=== PATIENT | male | born 1950 | race Caucasian/White ===

== ENCOUNTER 2019-03-02 07:24 | Day surgery (SDC) | payer BC ==
[2019-03-01 13:24] VITALS: BMI 26.1
[~2019-03-02 07:24] MED LIST: EPINEPHrine 0.3 MG in Ophthalmic Irrigation Solution 500 ML IVP SCH
[2019-03-02] MEDS ORDERED: Phenylephrine 2.5% Ophth Soln 5 ML BOT ONE (07:52)
[2019-03-02] MEDS ORDERED: Cyclopentolate 1% Opth Drop 2 ML BOT ONE (07:53)
[2019-03-02] MEDS ORDERED: Midazolam HCl 2 mg/2 ml Vial ONE (09:26)
[2019-03-02] MEDS ORDERED: PROPOFOL 20 ML ONE (09:26)
[2019-03-02] MEDS ORDERED: Fentanyl 100 MCG/2 ML VIAL ONE (09:26)
[2019-03-02] MEDS ORDERED: Bupivacaine 0.75% 10 ML AMP ONE (14:59)
[2019-03-02] MEDS ORDERED: Lidocaine 1% PF 5 ML VIAL ONE (14:59)
[2019-03-02] MEDS ORDERED: Maxitrol 0.1% Opth Oint 3.5 GM TUBE ONE (14:59)
[2019-03-02] MEDS ORDERED: PROPOFOL 200 MG/20 ML VIAL ONE (14:59)
[2019-03-02] MEDS ORDERED: Lidocaine 4% PF 5 ML AMP ONE (14:59)
[2019-03-02] MEDS ORDERED: Triamcinolone 40 MG/ML VIAL ONE (14:59)
[2019-03-02] MEDS ORDERED: Indocyanine Green 25 MG/10 ML VIAL ONE (14:59)
[2019-03-02] MEDS ORDERED: CEFAZOLIN 1 GM VIAL ONE (14:59)
--- NOTE | 2019-03-02 17:19 | OP ---
DATE OF PROCEDURE: 03/02/2019 PREOPERATIVE DIAGNOSIS: Epiretinal membrane, left eye. POSTOPERATIVE DIAGNOSIS: Epiretinal membrane, left eye. PROCEDURES PERFORMED: Pars plana vitrectomy and epiretinal membrane peel, left eye. ANESTHESIA: Local with monitored anesthesia care. PROCEDURE IN DETAIL: The patient was identified in the preoperative holding area. Appropriate informed consent for the planned surgical procedure on the left eye had been obtained. The patient was transported to the operative suite, where appropriate cardiopulmonary monitoring was established. Local anesthesia was obtained using retrobulbar modified [place] Lint lid block using 50:50 mixture of 4% lidocaine and 0.75% bupivacaine. The patient was prepped and draped in the usual sterile manner for ophthalmic surgery on the left eye. Lid speculum was placed in the left eye. A 25-gauge trocar was placed through the conjunctiva and sclera superotemporally, inferotemporally, and supranasally. Infusion line was placed inferotemporally. Light pipe and vitreous cutter were inserted into the eye. Core vitrectomy was performed. Indocyanine green dye was infused on the posterior pole x2 identifying the epiretinal membrane. This was elevated using membrane scraper and peeled across the macula using end-gripping forceps. There was some area of rigid adherence inferonasal to the fovea. Indirect ophthalmoscopy was used to examine the retina 360 degrees. No holes, breaks, or tears were identified. Air-fluid exchange was performed. Trocars were removed, and the eye was noted to retain pressure well. Retrobulbar Kenalog and subconjunctival Ancef were placed. Antibiotic ointment was placed. The eye was patched and shielded. The patient was taken to the postoperative recovery unit in good condition, having suffered no immediate perioperative complications. The patient was instructed to keep patch and shield on and to avoid lifting and bending. Followup appointment with Dr. Reyes. Job ID: [id number]
== END 2019-03-02 11:46 | disposition home or self-care (01) ==
LOC: SDC 07:24
PROVIDERS: ATTEND Ophthalmology Retina Specialist
PROC: 08NF3ZZ Release Left Retina, Percutaneous Approach (ICD-10-PCS; principal; 2019-03-02)
PROC: 08T53ZZ Resection of Left Vitreous, Percutaneous Approach (ICD-10-PCS; principal; 2019-03-02)
DX: H35.372 Puckering of macula, left eye (principal)
CPT/HCPCS: J0171; J0690; J2001; J2250; J2704; J3010; J3301; J3490